=== PATIENT | male | born 1955 | race Caucasian/White ===

== ENCOUNTER 2018-06-27 14:04 | Emergency (ER) | payer MEDICAID ==
[~2018-06-27] VITALS: Ht 167.6 cm; Wt 102.0 kg
[2018-06-27 15:06] LABS: BASOPHILS # (AUTO) 0.07 x10^3/uL (0-0.1); BASOPHILS % (AUTO) 1 % (0-1); EOSINOPHILS # (AUTO) 0.06 x10^3/uL (0-0.4); EOSINOPHILS % (AUTO) 1 % (1-7); LYMPHOCYTES # (AUTO) 2.03 x10^3/uL (1-3.4); LYMPHOCYTES % (AUTO) 27 % (22-44); MD NO; MEAN CORPUSCULAR HEMOGLOBIN 29.2 pg (27.5-34.5); MEAN CORPUSCULAR HGB CONC 33.8 g/dL (33.2-36.2); MEAN CORPUSCULAR VOLUME 86.4 fL (81-97); MEAN PLATELET VOLUME 8.1 fL (7.4-10.4); MONOCYTES # (AUTO) 0.66 x10^3/uL (0.2-0.8); MONOCYTES % (AUTO) 9 % (2-9); NEUTROPHILS # (AUTO) 4.66 x10^3/uL (1.8-6.8); NEUTROPHILS % (AUTO) 62 % (42-75); PLATELET COUNT 211 x10^3/uL (130-400); RED BLOOD COUNT 5.32 x10^6/uL (4.38-5.82); RED CELL DISTRIBUTION WIDTH 14.1 % (9.4-14.8)
[2018-06-27 15:18] LABS: ANION GAP 8 mmol/L (5-15); CALCIUM 9.3 mg/dL (8.5-10.1); CHLORIDE 107 mmol/L (98-107); CREATININE 1.11 mg/dL (0.7-1.3)
[2018-06-27] MEDS ORDERED: PREGABALIN 100 MG CAPSULE PO ONE (17:05)
[2018-06-27] MEDS ORDERED: METOPROLOL TARTRATE 25 MG TABLET ONE (17:49)
[2018-06-27] MEDS ORDERED: METOPROLOL TARTRATE 25 MG TABLET PO ONE (18:00)
[2018-06-27 18:12] VITALS: BP 118/63
--- NOTE | 2018-06-27 18:12 | NUR ---
LATE ENTRY: 1647: PT TO ROOM, PT STUCK IN [place] AFTER I[address] CLOSURE FOR MULTIPLE DAYS AND HAS [place] AND PAIN R/T UNABLE TO TAKE BP MEDS AND LYRICA. 1811: [place] IMPROVED AND BP DOWN TO 118/63. PT GIVEN DC INSTRUCTIONS
== END 2018-06-27 18:25 | disposition home or self-care (01) ==
LOC: ED 18:19
DX: I10 Essential (primary) hypertension (principal); E11.40 Type 2 diabetes mellitus with diabetic neuropathy, unspecified; I67.4 Hypertensive encephalopathy; Z76.0 Encounter for issue of repeat prescription
CPT/HCPCS: 36415; 71046; 80048; 85025; 93005; 99284